=== PATIENT | female | born 1995 | race Caucasian/White ===

== ENCOUNTER 2022-05-02 11:47 | Emergency (ER) | payer OTHER ==
[~2022-05-02] VITALS: Ht 162.6 cm; Wt 44.1 kg
[2022-05-02 12:03] VITALS: BP 108/71
--- NOTE | 2022-05-02 12:41 | NUR ---
PT TAKEN TO US VIA US
[2022-05-02 12:55] LABS: APPEARANCE,URINE CLEAR (CLEAR); BILIRUBIN,URINE NEGATIVE (NEGATIVE); BLOOD, URINE 3+ (NEGATIVE); COLOR,URINE YELLOW (YELLOW); LEUKOCYTE ESTERASE ,URINE 1+ (NEGATIVE); NITRITE, URINE NEGATIVE (NEGATIVE); UGLUCOSE NEGATIVE (NEGATIVE)
[2022-05-02 13:38] LABS: BASOPHILS % (AUTO) 0.5 % (0.0-2.0); EOSINOPHILS # (AUTO) 0.1 K/uL (0-0.4); EOSINOPHILS % (AUTO) 0.8 % (0.0-4.0); HEMATOCRIT 36.9 % (36-48); HEMOGLOBIN 12.8 g/dL (12.0-16.0); LYMPHOCYTES # (AUTO) 1.6 K/uL (2.5-16.5); LYMPHOCYTES % (AUTO) 15.5 % (20.5-51.1); MEAN CORPUSCULAR HEMOGLOBIN 33 pg (27-31); MEAN CORPUSCULAR HGB CONC 35 g/dL (33-37); MEAN CORPUSCULAR VOLUME 96.2 fL (80-94); MONOCYTES # (AUTO) 0.6 K/uL (0.8-1.0); MONOCYTES % (AUTO) 6.1 % (1.7-9.3); NEUTROPHILS # (AUTO) 8.1 K/uL (1.8-7.7); NEUTROPHILS % (AUTO) 77.1 % (42.2-75.2); PLATELET COUNT (AUTO) 231 K/uL (140-450); RED BLOOD CELL COUNT(AUTO) 3.83 MIL/uL (4.20-5.40); RED CELL DISTRIBUTION WIDTH 12.8 % (11.6-13.7); WHITE BLOOD COUNT (AUTO) 10.5 K/uL (4.8-10.8)
[2022-05-02 13:53] LABS: PROTHROMBIN TIME 9.3 secs (10.8-13.4)
--- NOTE | 2022-05-02 14:29 | NUR ---
26 Y/O FEMALE BIB SIGNIFICANT OTHER C/O VAGINAL BLEEDING X1 DAY, DENIES ANY CLOTS, STATES THAT SHE HASNT CONSUMED 1 PAD SINCE. LMP 01/22/23, 14 WEEKS, [id number] NKA PMH: DENIES
[2022-05-02] MEDS ORDERED: NITROFURANTOIN 100 MG CAP PO SCH (15:10)
[2022-05-02] MEDS ORDERED: NITR100C7 PO (15:15)
[2022-05-02 15:27] VITALS: BP 100/85
--- NOTE | 2022-05-02 15:28 | NUR ---
Patient discharged with v/s stable. Written and verbal after care instructions ABOUT UTI AND THREATENED MISCARRIAGE given and explained. Patient alert, oriented and verbalized understanding of instructions. Ambulatory with steady gait. All questions addressed prior to discharge. ID band removed. Patient advised to follow up with PMD. Rx of MACROBID given. Patient educated on indication of medication including possible reaction and side effects. Opportunity to ask questions provided and answered.
== END 2022-05-02 15:28 | disposition home or self-care (01) ==
LOC: MED 11:47
DX: O20.0 Threatened abortion (principal); O23.42 Unspecified infection of urinary tract in pregnancy, second trimester; N39.0 Urinary tract infection, site not specified; Z3A.14 14 weeks gestation of pregnancy
CPT/HCPCS: 36415; 76805; 81001; 81025; 84702; 85025; 85610; 85730; 86900; 86901; 87086; 99284